=== PATIENT | female | born 1955 | race Two or more races ===

== ENCOUNTER 2017-05-16 13:16 | Emergency (ER) | payer BC ==
[~2017-05-16] VITALS: Ht 157.5 cm; Wt 89.0 kg
[2017-05-16 13:19] VITALS: Ht 157.5 cm; Wt 89.0 kg
[2017-05-16] MEDS ORDERED: ONDANSETRON 4 MG INJ IM STA (15:14)
[2017-05-16] MEDS ORDERED: ALPRAZOLAM 0.25 MG TAB PO ONE (15:30)
[2017-05-16 15:43] LABS: ADD UMIC NO; UR ASCORBIC ACID NEGATIVE (NEGATIVE); UR BILIRUBIN (Dip) NEGATIVE (NEGATIVE); UR BLOOD (Dip) NEGATIVE (NEGATIVE); UR CLARITY CLEAR (CLEAR); UR COLOR STRAW (YELLOW); UR GLUCOSE (Dip) NEGATIVE (NEGATIVE); UR KETONES (Dip) NEGATIVE (NEGATIVE); UR LEUKOCYTE ESTERASE (Dip) NEGATIVE Leu/ul (NEGATIVE); UR NITRITE (Dip) NEGATIVE (NEGATIVE); UR SPECIFIC GRAVITY (Dip) 1.008 (1.003-1.030); UR TOTAL PROTEIN (Dip) NEGATIVE (NEGATIVE); UR UROBILINOGEN (Dip) NEGATIVE (NEGATIVE)
--- NOTE | 2017-05-16 18:09 | RADRPT ---
PROCEDURE: CT Head without. CLINICAL INDICATION: Headache, syncope, suspected intracranial hemorrhage. TECHNIQUE: The study was performed utilizing a multi-slice, multidetector CT scanner. Direct spira l 1 mm axial sections were obtained through the head without the use of intravenous contrast materia l. 1 or more of the following dose reduction techniques were utilized: Automated exposure control, adjustment of the mA and/or kV according to patient's size, iterative reconstruction technique. Co marcus and sagittal reformations were obtained. The images were reviewed on a PACS workstation. RADIATION DOSE: CTDIvol: 45.0 mGyDLP: 720.2 mGy-cm COMPARISON: No prior studies are available for comparison. FINDINGS: There is no intracranial hemorrhage, extra-axial fluid collection, mass lesion, midline shift or hyd rocephalus. The ventricles, sulci and cisterns are within normal limits. There is mild to moderate patchy periventricular and subcortical white matter hypodensity, asymmetric to the posterior pariet al / occipital regions (axial series image 18). The guo-white matter differentiation is preserved. The basal cisterns are patent. The midline structures are intact. The orbits, calvarium and extr acranial soft tissues are normal in appearance. The visualized paranasal sinuses, mastoid air cells and middle ear cavities are normally aerated. IMPRESSION: 1. No acute intracranial abnormality. No intracranial hemorrhage, extra-axial fluid collection, ma ss lesion or hydrocephalous. 2. Mild to moderate patchy periventricular and subcortical white matter lesions, slightly asymmetri c to the posterior parietal / occipital regions. This is nonspecific, and may be related to chronic microangiopathic changes, however given the posterior predominance, concern is raised for possible posterior reversible encephalopathy syndrome. Correlation with severe hypertension is recommended. MRI may be helpful for further evaluation. RPTAT: HGAS .Terence Shaw MD, MD Date Time Electronically viewed and signed by .Terence Shaw MD, MD on 05/16/2017 18:09 .S/
[2017-05-16] MEDS ORDERED: IBUPROFEN 600 MG TAB PO ONE (18:30)
--- NOTE | 2017-05-16 19:44 | ERD ---
ER Documentation Chief Complaint Date/Time DATE: 05/16/17 TIME: 19:36 Chief Complaint GONZALEZ AFTER HAD ARGUMENT YETERDAY HPI 61-year-old woman presents with pressure-like sensation to the posterior scalp and dizziness beginning last night while driving. She states she had to throw some water on her face to relieve her symptoms and dizziness although she denies loss of consciousness. She states she has dull headache diffusely initially beginning in the posterior scalp. She states "yawning" improves her symptoms and that she has been "yawning" since her early 20s. She denies that this is the worst headache of her life but states it is irritating her and wants a CT scan of the brain. She was seen and evaluated at [facility] and a full workup there including an EKG was unremarkable and patient was discharged. She denies fevers or chills, no weakness in her arms or legs, no slurred speech, no chest pain or shortness of breath, no recent seizure activity. Patient states for the last month she has had visual disturbance to the left eye, although she also states this has happened in the past and sometimes resolves. ROS All systems reviewed and are negative except as per history of present illness. Medications Home Meds Active Scripts Alprazolam* (Alprazolam*) 0.5 Mg Tablet, 0.5 MG PO TID for PAIN, #12 TAB Prov:ELIZABETH MARROQUIN MD 05/16/17 Ibuprofen* (Ibuprofen*) 600 Mg Tablet, 600 MG PO Q8 for PAIN AND/OR INFLAMMATION , #30 TAB Prov:ELIZABETH MARROQUIN MD 05/16/17 PMhx/Soc Anxiety History of Surgery: No Anesthesia Reaction: No Hx Neurological Disorder: No Hx Respiratory Disorders: No Hx Cardiac Disorders: Yes (ARRTHYMIAS) Hx Psychiatric Problems: No Hx Miscellaneous Medical Probl: No Hx Alcohol Use: No Hx Substance Use: No Hx Tobacco Use: No Smoking Status: Never smoker FmHx Family History: No diabetes Physical Exam Vitals Vital Signs Date Time Temp Pulse Resp B/P Pulse Ox O2 Delivery O2 Flow Rate FiO2 05/16/17 20:23 98.7 62 16 122/68 99 Room Air 05/16/17 13:19 98.1 78 18 127/78 99 Physical Exam GENERAL: Well-developed, well-nourished, anxious HEENT: Moist mucous membranes, pink conjunctiva, no cervical spine tenderness or step-off deformities, no goiter, no jaundice or icterus, extraocular movements intact without pain. No submandibular induration, and no pharyngeal erythema NEURO: Alert and oriented 3, cranial nerves II through XII intact bilaterally, pupils equal round reactive to light, no focal deficits or facial asymmetry, sensation intact distally Strength 5/5 in upper and lower extremities bilaterally CARDIAC: Regular rate and rhythm, no murmurs rubs or gallops LUNGS: Clear bilaterally no wheezing crackles or stridor ABDOMEN: Soft nontender, no guarding, no rigidity, no rebound, no psoas sign no obturator sign. Normoactive bowel sounds SKIN: Warm and dry to touch, no abrasions, contusions, or hematomas, no lacerations, no ecchymosis, no target lesions, and without ulcers EXTREMITIES: No clubbing cyanosis or edema, calves are bilaterally symmetrical, no Homans sign, no popliteal cord sign. Distal pulses equal and bilateral PSYCH: Anxious Results 24 hrs Laboratory Tests Test 05/16/17 15:20 Urine Color STRAW Urine Clarity CLEAR Urine pH 6.0 Urine Specific Gray 1.008 Urine Ketones NEGATIVEmg/dL Urine Nitrite NEGATIVEmg/dL Urine Bilirubin NEGATIVEmg/dL Urine Urobilinogen NEGATIVEmg/dL Urine Leukocyte Esterase NEGATIVELeu/ul Urine Hemoglobin NEGATIVEmg/dL Urine Glucose NEGATIVEmg/dL Urine Total Protein NEGATIVEmg/dl Current Medications Medications (Trade) Dose Ordered Sig/Andrews Route PRN Reason Start Time Stop Time Status Last Admin Dose Admin Ondansetron HCl (Zofran Inj) 4 mg ONCE STAT IM 05/16/17 15:14 05/16/17 15:17 DC 05/16/17 15:25 Alprazolam (Xanax) 0.5 mg ONCE ONCE PO 05/16/17 15:30 05/16/17 15:31 DC 05/16/17 15:25 Ibuprofen (Motrin) 600 mg ONCE ONCE PO 05/16/17 18:30 05/16/17 18:31 DC Procedures/[facility] For her symptoms I administered Zofran 4 mg intramuscular injection, ibuprofen 600 mg p.o., and alprazolam 0.5 mg p.o. with improvement. Patient denies headache here in the emergency department although given her earlier symptoms CT scan of the brain was ordered. CT scan of the brain revealed mild to moderate patchy white matter changes to the parietal lobes and periventricular region. These may represent chronic microangiopathic changes, please refer to radiologist dictation for full report. Posterior reversible encephalopathy syndrome is also a concern, MRI brain was recommended. Urine analysis was negative for infection. MRI brain was unremarkable revealing only chronic microangiopathic changes. Please refer to radiologist dictation for full report. Patient's neurologic exam was repeated by me at the bedside remained completely within normal limits. She states her symptoms improved. Recommendation was for continued outpatient management with her PMD. Differential diagnoses considered, included but not limited to acute coronary syndrome, pulmonary embolism, aortic dissection, abdominal aortic aneurysm, sepsis, stroke, meningitis, encephalitis, pneumonia, appendicitis, cholecystitis , bowel obstruction, pyelonephritis, nephrolithiasis, cystitis, as well as metabolic, hematologic, and electrolyte abnormalities. As well as abscess, cellulitis, fractures, and dislocations. Patient feels much better at this time, and vital signs are normal, symptoms have improved. I did give strict instructions to return to the ED if symptoms continue or worsen, patient will otherwise follow-up with primary care physician. Patient understood instructions and agreed to plan. Disclaimer: Inadvertent spelling and grammatical errors are likely due to EHR/ dictation software use and do not reflect on the overall quality of patient care. Also, please note that the electronic time recorded on this note does not necessarily reflect the actual time of the patient encounter. Departure Diagnosis: Primary Impression: Headache Headache type: tension-type Headache chronicity pattern: acute headache Intractability: not intractable Qualified Code: G44.209 - Acute non intractable tension-type headache Additional Impressions: Dizziness Anxiety Condition: Good ELIZABETH MARROQUIN MD May 16, 2017 19:44
--- NOTE | 2017-05-16 20:15 | RADRPT ---
PROCEDURE: MRI Brain without contrast. CLINICAL INDICATION: Dizziness TECHNIQUE: Multiplanar MRI of the brain without contrast was performed on a 3.0 T scanner with the following sequences obtained: T1-weighted, T2-weighted/FLAIR, diffusion weighted (with ADC map), GR E. COMPARISON: CT brain 05/16/2017 FINDINGS: No acute/recent ischemic infarction or intracranial hemorrhage / blood degradation products are iden tified. No extra-axial fluid collection is seen. There is no mass effect. No midline shift is identified. The ventricles and sulci are within normal limits for size and configuration Mild to moderate areas of increased T2 / FLAIR signal intensity are present in the periventricular a nd deep white matter, nonspecific but likely related to chronic small vessel ischemic changes. Flow voids are identified in the proximal intracranial arteries and dural sinuses suggesting patency . The mastoid air cells and paranasal sinuses are grossly clear. IMPRESSION: 1. No evidence of acute intracranial pathology. 2. Mild to moderate chronic small vessel ischemic changes. RPTAT: HH .Arite Bermudez MD, MD Date Time Electronically viewed and signed by .Artie Bermudez MD, MD on 05/16/2017 20:14 .O/
[2017-05-16] MEDS ORDERED: IBUP-1542 PO (20:18)
[2017-05-16] MEDS ORDERED: ALPR0.5T6 PO (20:18)
[2017-05-16 20:23] VITALS: BP 122/68; PULSE 62; RESP 16; TEMP 98.7
== END 2017-05-16 20:24 | disposition home or self-care (01) ==
LOC: FTE 13:16
DX: G44.209 Tension-type headache, unspecified, not intractable (principal); R42 Dizziness and giddiness; F41.9 Anxiety disorder, unspecified
CPT/HCPCS: 70450; 70551; 81003; 96372; 99285; J2405